=== PATIENT | female | born 1995 | race African-American/Black ===

== ENCOUNTER 2017-12-04 19:13 | Emergency (ER) | payer MEDICAID ==
[2017-12-04 19:18] VITALS: BP 142/66; BMI 26.5
--- NOTE | 2017-12-04 22:54 | DR.GENAD ---
HPI - PCP Primary Care Physician: nfd - Complaint/Symptoms Chief Complaint Doctors Comments: Patient presents to the ED with complaint of nausea w/o vomiting, darrrhea or fever. LMP is delayed, took, test reported as negative. Has taken OTC medication w/o relief of nausea. Chief Complaint:: Patient reports nausea; cramping; denies vomiting - Source History Provided: Patient - Mode of Arrival Mode of Arrival: Ambulatory - Timing Onset of Chief Complaint: 11/27/17 PMH - PMH Past Medical History: No Past Surgical History: No - Family History History of Family Medical Conditions: No - Social History Type of Tobacco Use: None Alcohol Use: None Do you use any recreational Drugs:: No Lives With: Family Lives Where: Home - infectious screening In the last 2 months have you had wt loss of >10#?: NO Have you had fever, night sweats or hemotysis?: No Have you traveled outside the country in the last 6 months?: No Isolation: Standard ROS - Review of Systems Eyes: No Symptoms Reported ENTM: No Symptoms Reported Respiratoy: No Symptoms Reported Cardiovascular: No Symptoms Reported Gastrointestinal/Abdominal: No Symptoms Reported Genitourinary: No Symptoms Reported Neurological: No Symptoms Reported Musculoskeletal: No Symptoms Reported Integumentary: No Symptoms Reported Hematologic/Lymphatic: No Symptoms Reported Endocrine: No Symptoms Reported Psychiatric: No Symptoms Reported All Other Systems: Reviewed and Negative PE - Vital Signs Vitals: Temperature 99.4 F Pulse Rate 77 Respiratory Rate 20 Blood Pressure 142/66 O2 Sat by Pulse Oximetry 99 - General General Appearance: Alert, In No Apparent Distress - Head Head Exam: Normal Inspection, Atraumatic - Eyes Eye exam: Normal Appearance, PERRL, EOMI - ENT ENT Exam: Normal Exam, Mucous Membranes Moist TM/Canal Exam: Bilateral Normal Nose Exam: Normal Nose Exam Mouth Exam: Normal Inspection Throat Exam: Normal Inspection - Neck Neck Exam: Normal Inspection - Chest Chest Inspection: Normal Inspection, Symmetric Chest Wall Rise - Respiratory Respiratory Exam: Normal Lung Sounds Bilat Respiratory Exam: Bilateral Clear to Auscultation - Cardiovascular Cardiovascular Exam: Regular Rate, Normal Rhythm - Abdominal Exam Abdominal Exam: Normal Inspection, Normal Bowel Sounds Abdominal Tenderness: negative: RUQ, RLQ, LUQ, LLQ, Epigastrium, Suprapubic, Diffuse, Mild, Moderate, Severe, Other - Extremities Extremities Exam: Normal Inspection, Full ROM - Back Back Exam: Normal Inspection, Full ROM - Neurologic Neurological Exam: Alert, Oriented X3, CN II-XII Intact - Psychiatric Psychiatric Exam: Normal Affect, Normal Mood - Skin Skin Exam: Warm, Dry, Intact Course - Reevaluation 1st: Unchanged - Education/Counseling Educated On: Treatment, Diagnosis, Prognosis ROR - Labs Reviewed Laboratory Results Reviewed?: Yes (UA: +Bld;Leuk esterace 2+, WBC 4-7; negative test) Result Diagrams: 12/04/17 23:10 12/04/17 23:10 Laboratory: WBC 10.4 X10^3/uL (3.6-10.0) H 12/04/17 23:10 RBC 4.36 X10^6/uL (3.5-5.4) 12/04/17 23:10 Hgb 9.8 g/dL (12.0-16.0) L 12/04/17 23:10 Hct 31.1 % (36.0-47.0) L 12/04/17 23:10 MCV 71.3 fL (80.0-100.0) L 12/04/17 23:10 MCH 22.5 pg (27.0-34.0) L 12/04/17 23:10 MCHC 31.6 g/dL (33.0-35.0) L 12/04/17 23:10 RDW 18.0 % (11.6-16.5) H 12/04/17 23:10 Plt Count 310 X10^3/uL (150.0-450.0) 12/04/17 23:10 Plt Count Comment Adequate (ADEQUATE) 12/04/17 23:10 MPV 8.7 fL (7.4-11.0) 12/04/17 23:10 Neut % 60.3 % (42.0-75.0) 12/04/17 23:10 Lymph % 27.4 % (21.0-51.0) 12/04/17 23:10 Howard % 8.6 % (0.0-13.0) 12/04/17 23:10 Eos % 3.0 % (0.9-2.9) H 12/04/17 23:10 Baso % 0.7 % (0.2-1.0) 12/04/17 23:10 Neut # 6.2 x10^3/uL (2.2-4.8) H 12/04/17 23:10 Lymph # 2.8 X10^3/uL (1.3-2.9) 12/04/17 23:10 Howard # 0.9 x10^3/uL (0.3-0.8) H 12/04/17 23:10 Eos # 0.3 x10^3/uL (0.0-0.2) H 12/04/17 23:10 Baso # 0.1 X10^3/uL (0.0-0.1) 12/04/17 23:10 Absolute Nucleated RBC 0.0 /100WBC 12/04/17 23:10 Plt Morphology Comment Normal (NORMAL) 12/04/17 23:10 RBC Morphology Abnormal (NORMAL) A 12/04/17 23:10 Hypochromasia 1+ A 12/04/17 23:10 Sodium 136 mmol/L (136-145) 12/04/17 23:10 Corrected Sodium TNP 12/04/17 23:10 Potassium 3.5 mmol/L (3.5-5.1) 12/04/17 23:10 Chloride 102 mmol/L (98-107) 12/04/17 23:10 Carbon Dioxide 26.1 mmol/L (21-32) 12/04/17 23:10 BUN 12 mg/dL (7-18) 12/04/17 23:10 Creatinine 0.91 mg/dL (0.55-1.02) 12/04/17 23:10 Est GFR (MDRD) Af Amer > 60 (>60) 12/04/17 23:10 Est GFR (MDRD) Non-Af > 60 (>60) 12/04/17 23:10 Glucose 98 mg/dL (65-99) 12/04/17 23:10 Calcium 8.7 mg/dL (8.5-10.1) 12/04/17 23:10 HCG, Qual Negative <10 mIU/mL 12/04/17 23:10 Specimen Type Clean catch urine 12/04/17 23:02 Urine Color Yellow (YELLOW) 12/04/17 23:02 Urine Appearance Clear (CLEAR) 12/04/17 23:02 Urine pH 6.0 (5.0 - 8.0) 12/04/17 23: Ur Specific [place] 1.020 (1.000-1.030) 12/04/17 23: Urine Protein 1+ (NEGATIVE) 12/04/17 23: Urine Glucose (UA) Negative (NEGATIVE) 12/04/17 23: Urine Ketones 1+ (NEGATIVE) 12/04/17 23: Urine Occult Blood 1+ (NEGATIVE) 12/04/17 23: Urine Nitrite Negative (NEGATIVE) 12/04/17 23: Urine Bilirubin Negative (NEGATIVE) 12/04/17 23: Urine Urobilinogen 3+ (NORMAL) 12/04/17 23: Ur Leukocyte Esterase 2+ (NEGATIVE) 12/04/17 23: Urine RBC 2-5 /HPF (NEGATIVE) 12/04/17 23: Urine WBC 4-7 /HPF (NEGATIVE) 12/04/17 23:02 Ur Squamous Epith Cells Many /HPF (NEGATIVE) 12/04/17 23: Urine Bacteria Negative /HPF (NEGATIVE) 12/04/17 23: Urine Mucus Few /HPF (NEGATIVE) 12/04/17 23:02 Ur Culture Indicated? No/not indicated 12/04/17 23:02 - Diagnosis Discharge Problem: UTI (urinary tract infection) Qualifiers: Urinary tract infection type: acute cystitis Hematuria presence: with hematuria Qualified Code(s): N30.01 - Acute cystitis with hematuria - Discharge Plan Condition: Stable - Follow ups/Referrals Follow ups/Referrals: NFD,None [Primary Care Provider] - 3 days - Instructions
[2017-12-04 23:18] LABS: BASOPHILS # (AUTO) 0.1 X10^3/uL (0.0-0.1); BASOPHILS % (AUTO) 0.7 % (0.2-1.0); EOSINOPHILS # (AUTO) 0.3 x10^3/uL (0.0-0.2); HEMATOCRIT 31.1 % (36.0-47.0); HEMOGLOBIN 9.8 g/dL (12.0-16.0); LYMPHOCYTES # (AUTO) 2.8 X10^3/uL (1.3-2.9); LYMPHOCYTES % (AUTO) 27.4 % (21.0-51.0); MEAN CORPUSCULAR HEMOGLOBIN 22.5 pg (27.0-34.0); MEAN CORPUSCULAR HGB CONC 31.6 g/dL (33.0-35.0); MEAN CORPUSCULAR VOLUME 71.3 fL (80.0-100.0); MEAN PLATELET VOLUME 8.7 fL (7.4-11.0); MONOCYTES # (AUTO) 0.9 x10^3/uL (0.3-0.8); MONOCYTES % (AUTO) 8.6 % (0.0-13.0); NEUTROPHILS # (AUTO) 6.2 x10^3/uL (2.2-4.8); NEUTROPHILS % (AUTO) 60.3 % (42.0-75.0); PLATELET COUNT 310 X10^3/uL (150.0-450.0); RED BLOOD COUNT 4.36 X10^6/uL (3.5-5.4); WHITE BLOOD COUNT 10.4 X10^3/uL (3.6-10.0)
[2017-12-04 23:18] LABS: BILIRUBIN,URINE NEGATIVE (NEGATIVE); BLOOD/HEMOGLOBIN,URINE 1+ (NEGATIVE); GLUCOSE, URINE NEGATIVE (NEGATIVE); KETONES,URINE 1+ (NEGATIVE); LEUKOCYTE ESTERASE ,URINE 2+ (NEGATIVE); NITRITES,URINE NEGATIVE (NEGATIVE); PROTEIN,URINE 1+ (NEGATIVE); UROBILINOGEN,URINE 3+ (NORMAL)
[2017-12-04 23:23] LABS: BLOOD UREA NITROGEN 12 mg/dL (7-18); CALCIUM 8.7 mg/dL (8.5-10.1); CARBON DIOXIDE 26.1 mmol/L (21-32); CHLORIDE 102 mmol/L (98-107); CREATININE 0.91 mg/dL (0.55-1.02); SODIUM 136 mmol/L (136-145); eGFR BLACK RACES > 60 (>60); eGFR NON BLACK RACES > 60 (>60)
[2017-12-04 23:33] LABS: SERUM PREGNANCY TEST, QUAL NEGATIVE <10 mIU/mL
[2017-12-04 23:33] LABS: APPEARANCE,URINE CLEAR (CLEAR); BACTERIA,URINE NEGATIVE /HPF (NEGATIVE); COLOR,URINE YELLOW (YELLOW); MUCUS,URINE FEW /HPF (NEGATIVE); SQUAMOUS EPITHELIAL CELL,UR MANY /HPF (NEGATIVE)
[2017-12-04 23:44] LABS: HYPOCHROMASIA 1+; PLATELET MORPHOLOGY COMMENT NORMAL (NORMAL)
== END 2017-12-05 00:36 | disposition home or self-care (01) ==
LOC: ER 19:21
DX: N30.01 Acute cystitis with hematuria (principal)
CPT/HCPCS: 36415; 80048; 81001; 84703; 85025; 99282